=== PATIENT | male | born 1955 | race Caucasian/White ===

== ENCOUNTER 2024-05-13 15:44 | Inpatient (IN) ==
[2024-05-13] MEDS ORDERED: IOPAMIDOL 100 ML BOTTLE IV ONE (15:45)
[2024-05-13] MEDS: fentaNYL 100 MCG/2 ML VIAL IV ONE ×2 (16:55→18:30)
[2024-05-13] MEDS: ONDANSETRON 4 MG/2 ML VIAL IV ONE (16:55)
[2024-05-13 17:02] LABS: Basophils # (Auto) 0.03 K/mcL (0.00-0.30); Basophils % (Auto) 0.3 % (0.0-2.0); Eosinophils # (Auto) 0.24 K/mcL (0.00-0.70); Eosinophils % (Auto) 2.4 % (0.0-7.0); Hematocrit 45.2 % (40.1-51.0); Hemoglobin 15.1 g/dL (13.7-17.5); Lymphocytes # (Auto) 0.98 K/mcL (1.50-4.80); Lymphocytes % (Auto) 9.9 % (15.5-49.0); Mean Cell Volume 99.8 fL (80.0-100.0); Mean Corpuscular HGB Conc 33.4 g/dL (31.0-36.0); Mean Platelet Volume 10.4 fL (8.8-12.5); Monocytes # (Auto) 0.81 K/mcL (0.10-0.90); Monocytes % (Auto) 8.2 % (1.0-12.0); Platelet Count 234 K/mcL (140-440); RBC 4.53 M/mcL (4.63-6.08); WBC 9.9 K/mcL (4.5-11.0)
[2024-05-13 17:19] LABS: ALT/SGPT 40 U/L (<40); AST/SGOT 45 U/L (<40); Albumin/Globulin Ratio 1.3 (1.0-2.3); Alkaline Phosphatase 87 U/L (39-117); Bilirubin,Total 0.6 mg/dL (0.1-1.0); Blood Urea Nitrogen 33 mg/dL (8-23); Calcium 9.5 mg/dL (8.6-10.4); Carbon Dioxide 25 mmol/L (22-30); Chloride 98 mmol/L (96-108); Globulin 3.2 gm/dL (2.2-3.7); Glomerular Filtration Rate 50; Glucose 148 mg/dL (70-105); Potassium 4.5 mmol/L (3.3-5.1); Sodium 136 mmol/L (133-145)
[2024-05-13] MEDS: 0.9 % SODIUM CHLORIDE 1,000 ML IV ONE (17:46)
[2024-05-13 18:47] LABS: INR 1.1 (0.9-1.1); Prothrombin Time 14.2 sec (11.9-14.5)
[2024-05-13] MEDS: DEXTROSE 5%-LR 1,000 ML IV SCH (21:10)
[2024-05-13] MEDS: METOCLOPRAMIDE 10 MG/2 ML VIAL IV SCH (21:50)
[2024-05-13] MEDS: ACETAMINOPHEN 650 MG/65 ML BAG IV PRN (21:50)
[2024-05-13] MEDS: HYDROmorphone 0.5 MG/0.5 ML SYRINGE IV PRN (21:51)
[2024-05-14 06:51] LABS: Hematocrit 44.8 % (40.1-51.0); Hemoglobin 14.7 g/dL (13.7-17.5); Mean Cell Volume 102.8 fL (80.0-100.0); Mean Corpuscular HGB Conc 32.8 g/dL (31.0-36.0); Mean Platelet Volume 10.5 fL (8.8-12.5); Platelet Count 223 K/mcL (140-440); RBC 4.36 M/mcL (4.63-6.08); Red Cell Distribution Width 13.1 % (11.5-14.5); WBC 8.2 K/mcL (4.5-11.0)
[2024-05-14 07:03] LABS: ALT/SGPT 36 U/L (<40); AST/SGOT 36 U/L (<40); Albumin 3.9 gm/dL (3.2-5.2); Albumin/Globulin Ratio 1.2 (1.0-2.3); Alkaline Phosphatase 86 U/L (39-117); Bilirubin,Total 0.6 mg/dL (0.1-1.0); Blood Urea Nitrogen 28 mg/dL (8-23); Carbon Dioxide 29 mmol/L (22-30); Chloride 101 mmol/L (96-108); Globulin 3.2 gm/dL (2.2-3.7); Glomerular Filtration Rate 55; Glucose 121 mg/dL (70-105); Potassium 4.4 mmol/L (3.3-5.1); Sodium 137 mmol/L (133-145)
[2024-05-14] MEDS: PANTOPRAZOLE 40 MG VIAL IV SCH (07:58)
[2024-05-14] MEDS: BISACODYL 10 MG SUPP.RECT PR SCH (10:16)
[2024-05-14] MEDS: oxyCODONE IR 5 MG TABLET PO PRN (15:32)
[2024-05-15] MEDS: LISINOPRIL 20 MG TABLET PO SCH (08:08)
[2024-05-15 09:17] LABS: Basophils # (Auto) 0.02 K/mcL (0.00-0.30); Basophils % (Auto) 0.3 % (0.0-2.0); Eosinophils # (Auto) 0.31 K/mcL (0.00-0.70); Eosinophils % (Auto) 4.5 % (0.0-7.0); Hematocrit 42.6 % (40.1-51.0); Hemoglobin 13.8 g/dL (13.7-17.5); Lymphocytes # (Auto) 0.82 K/mcL (1.50-4.80); Lymphocytes % (Auto) 11.8 % (15.5-49.0); Mean Cell Volume 103.1 fL (80.0-100.0); Mean Corpuscular HGB Conc 32.4 g/dL (31.0-36.0); Mean Platelet Volume 10.2 fL (8.8-12.5); Monocytes % (Auto) 8.6 % (1.0-12.0); Neutrophils % (Auto) 74.7 % (38.0-78.0); Platelet Count 187 K/mcL (140-440); RBC 4.13 M/mcL (4.63-6.08)
[2024-05-15 09:48] LABS: Blood Urea Nitrogen 18 mg/dL (8-23); Calcium 8.7 mg/dL (8.6-10.4); Carbon Dioxide 28 mmol/L (22-30); Chloride 98 mmol/L (96-108); Glomerular Filtration Rate 86; Glucose 99 mg/dL (70-105); Potassium 4.3 mmol/L (3.3-5.1); Sodium 133 mmol/L (133-145)
[2024-05-15] MEDS: ATORVASTATIN 40 MG TABLET PO SCH (21:45)
[2024-05-16 06:48] LABS: Hematocrit 41.9 % (40.1-51.0); Hemoglobin 13.9 g/dL (13.7-17.5); Mean Cell Volume 100.5 fL (80.0-100.0); Mean Corpuscular HGB Conc 33.2 g/dL (31.0-36.0); Mean Platelet Volume 10.5 fL (8.8-12.5); Platelet Count 216 K/mcL (140-440); RBC 4.17 M/mcL (4.63-6.08); Red Cell Distribution Width 12.7 % (11.5-14.5)
[2024-05-16 07:34] LABS: Blood Urea Nitrogen 11 mg/dL (8-23); Calcium 8.9 mg/dL (8.6-10.4); Carbon Dioxide 25 mmol/L (22-30); Chloride 100 mmol/L (96-108); Glomerular Filtration Rate 95; Glucose 121 mg/dL (70-105); Potassium 4.1 mmol/L (3.3-5.1); Sodium 134 mmol/L (133-145)
[2024-05-16] MEDS: LACTULOSE 20 GM/30 ML ORAL.SOL PO SCH (10:24)
[2024-05-16] MEDS: BISACODYL 10 MG SUPP.RECT PR SCH (14:35)
[2024-05-17] MEDS: EZETIMIBE 10 MG TABLET PO SCH (08:52)
[2024-05-17] MEDS ORDERED: DIATRIZOATE MEGLU/DIATRIZO SOD 120ML BOTTLE PO ONE (15:25)
[2024-05-17] MEDS ORDERED: PANTOPRAZOLE 40 MG VIAL IV SCH (17:00)
[2024-05-17] MEDS ORDERED: hydrALAZINE 20 MG/ML VIAL IV PRN (17:53)
[2024-05-17] MEDS ORDERED: oxyCODONE IR 5 MG TABLET PO PRN (19:57)
[2024-05-17] MEDS: DEXTROSE 5%-LR 1,000 ML IV SCH (20:57)
[2024-05-17] MEDS: METHOCARBAMOL 750 MG TABLET PO SCH (20:57)
[2024-05-17] MEDS: ATORVASTATIN 40 MG TABLET PO SCH (21:37)
[2024-05-17] MEDS: NEOSTIGMINE 1 MG/ML ML IV ONE ×2 (21:37→23:26)
[2024-05-17] MEDS ORDERED: ATROPINE SULFATE 0.4 MG/ML VIAL IV PRN (21:50)
[2024-05-17] MEDS: ONDANSETRON 4 MG/2 ML VIAL IV PRN (21:53)
[2024-05-17] MEDS: HYDROmorphone 0.5 MG/0.5 ML SYRINGE IV PRN (22:18)
[2024-05-17] MEDS: ONDANSETRON 4 MG/2 ML VIAL ONE (22:26)
[2024-05-17] MEDS: HYDROmorphone 0.5 MG/0.5 ML SYRINGE ONE ×2 (22:26→23:25)
[2024-05-17] MEDS: ATROPINE SULFATE 1 MG/10 ML SYRINGE IV ONE (22:26)
[2024-05-18] MEDS: HYDROmorphone 0.5 MG/0.5 ML SYRINGE ONE (05:01)
[2024-05-18] MEDS: PANTOPRAZOLE 40 MG VIAL IV SCH (06:46)
[2024-05-18 08:52] LABS: Hematocrit 43.5 % (40.1-51.0); Hemoglobin 14.3 g/dL (13.7-17.5); Mean Cell Volume 100.9 fL (80.0-100.0); Mean Corpuscular HGB Conc 32.9 g/dL (31.0-36.0); Mean Platelet Volume 9.8 fL (8.8-12.5); Platelet Count 183 K/mcL (140-440); RBC 4.31 M/mcL (4.63-6.08); Red Cell Distribution Width 12.7 % (11.5-14.5); WBC 7.2 K/mcL (4.5-11.0)
[2024-05-18 09:54] LABS: Blood Urea Nitrogen 8 mg/dL (8-23); Carbon Dioxide 27 mmol/L (22-30); Chloride 101 mmol/L (96-108); Glomerular Filtration Rate 86; Glucose 128 mg/dL (70-105); Potassium 3.9 mmol/L (3.3-5.1); Sodium 136 mmol/L (133-145)
[2024-05-18] MEDS: VITAMIN B COMPLEX 1 CAPSULE PO SCH (11:30)
[2024-05-18] MEDS: LISINOPRIL 20 MG TABLET PO SCH (11:30)
[2024-05-18] MEDS: NEOSTIGMINE 1 MG/ML ML IV ONE (11:52)
[2024-05-18] MEDS: ACETAMINOPHEN 650 MG/65 ML BAG IV PRN (17:58)
[2024-05-18] MEDS: DEXTROSE 5%-LR 1,000 ML IV SCH (19:29)
[2024-05-18] MEDS: PYRIDOSTIGMINE 60 MG TABLET PO SCH (20:47)
[2024-05-19 06:41] LABS: Hemoglobin 13.3 g/dL (13.7-17.5); Mean Cell Volume 101.3 fL (80.0-100.0); Mean Corpuscular HGB Conc 33.3 g/dL (31.0-36.0); Mean Platelet Volume 10.4 fL (8.8-12.5); Platelet Count 183 K/mcL (140-440); RBC 3.95 M/mcL (4.63-6.08); Red Cell Distribution Width 12.8 % (11.5-14.5); WBC 5.8 K/mcL (4.5-11.0)
[2024-05-19 06:42] LABS: ALT/SGPT 21 U/L (<40); AST/SGOT 25 U/L (<40); Albumin 3.3 gm/dL (3.2-5.2); Albumin/Globulin Ratio 1.2 (1.0-2.3); Alkaline Phosphatase 93 U/L (39-117); Bilirubin,Total 0.5 mg/dL (0.1-1.0); Blood Urea Nitrogen 9 mg/dL (8-23); Calcium 9.1 mg/dL (8.6-10.4); Carbon Dioxide 28 mmol/L (22-30); Chloride 99 mmol/L (96-108); Globulin 2.7 gm/dL (2.2-3.7); Glomerular Filtration Rate 90; Glucose 116 mg/dL (70-105); Potassium 3.8 mmol/L (3.3-5.1); Sodium 136 mmol/L (133-145)
[2024-05-19] MEDS: DEXTROSE 5%-LR 1,000 ML IV SCH (14:30)
[2024-05-20] MEDS: HYDROcodone/APAP 5/325MG TABLET PO PRN (00:31)
[2024-05-20] MEDS: HYDROcodone/APAP 5/325MG TABLET PO ONE (00:36)
[2024-05-20 06:01] LABS: Hematocrit 40.9 % (40.1-51.0); Hemoglobin 13.6 g/dL (13.7-17.5); Mean Cell Volume 99.8 fL (80.0-100.0); Mean Corpuscular HGB Conc 33.3 g/dL (31.0-36.0); Mean Platelet Volume 10.4 fL (8.8-12.5); Platelet Count 193 K/mcL (140-440); Red Cell Distribution Width 12.6 % (11.5-14.5); WBC 5.7 K/mcL (4.5-11.0)
[2024-05-20 06:21] LABS: Blood Urea Nitrogen 8 mg/dL (8-23); Calcium 9.5 mg/dL (8.6-10.4); Carbon Dioxide 30 mmol/L (22-30); Chloride 100 mmol/L (96-108); Glomerular Filtration Rate 90; Glucose 105 mg/dL (70-105); Potassium 3.7 mmol/L (3.3-5.1); Sodium 138 mmol/L (133-145)
[2024-05-20] MEDS: HYDROcodone/APAP 10/325MG TABLET PO PRN (07:48)
[2024-05-20] MEDS: PANTOPRAZOLE 40 MG TABLET PO SCH (17:42)
[2024-05-20] MEDS ORDERED: POLYETHYLENE GLYCOL 3350 17 GM PACKET PO PRN (18:47)
[2024-05-20] MEDS: ACETAMINOPHEN 325 MG TABLET PO PRN (19:33)
[2024-05-20] MEDS: DOCUSATE SODIUM 100 MG CAPSULE PO SCH (20:08)
[2024-05-21 12:39] VITALS: TEMP 97.8; O2SAT 97
== END 2024-05-21 15:40 | disposition home or self-care (01) | DRG 200 ==
LOC: MEDSUR 15:44 → ED 15:44 → MEDSUR 20:50 → ICU 05-17 19:56 → MEDSUR 05-20 16:03
PROVIDERS: ADMIT Surgery Surgical Critical Care; ATTEND Surgery Surgical Critical Care